=== PATIENT | female | born 2000 | race Two or more races ===

== ENCOUNTER 2023-12-15 13:36 | Inpatient (IN) | payer OTHER ==
[~2023-12-15] VITALS: Ht 162.6 cm; Wt 79.4 kg
[2023-12-15] MEDS ORDERED: BUTORPHANOL TARTRATE 2 MG/1 ML VIAL IV PRN ×2 (15:15)
[2023-12-15 15:30] LABS: Fern Testing Negative
[2023-12-15] MEDS: NALOXONE HCL 0.4 MG/ML VIAL IV ONE (15:30)
[2023-12-15] MEDS: ePHEDrine SULFATE 50 MG/ML AMP IV ONE (15:30)
[2023-12-15 16:12] LABS: Basophils # (auto) 0 10 ^3/uL (0-0.2); Basophils % (auto) 0.2 % (0.0-2.0); Eosinophils # (auto) 0.1 10 ^3/uL (0-0.8); Eosinophils % (auto) 0.7 % (0.0-7.0); Hematocrit 37.5 % (36.0-46.0); Hemoglobin 13.1 g/dL (12.2-16.2); Lymphocytes # (auto) 2.1 10 ^3/uL (0.4-5.4); Lymphocytes % (auto) 21.1 % (10.0-50.0); Mean Corpuscular Hemoglobin 33.2 pg (28.0-32.0); Mean Corpuscular Hgb Conc. 35.1 g/dL (32.0-36.0); Mean Corpuscular Volume 94.6 fL (80.0-100.0); Monocytes # (auto) 0.6 10 ^3/uL (0-1.3); Monocytes % (auto) 5.9 % (0.0-12.0); Neutrophils # (auto) 7.2 10 ^3/uL (1.6-8.6); Neutrophils % (auto) 72.1 % (37.0-80.0); Nucleated Red Blood Cells % 0.1 %; Platelet Count (auto) 212 10^3/uL (140-450); Red Blood Cells 3.96 10^6/uL (4.0-5.20); Red Cell Distribution Width 13.2 % (11.8-14.3)
[2023-12-15 16:16] LABS: Urine Bacteria FEW /hpf (None Seen); Urine Blood TRACE /uL (Negative); Urine Clarity Clear (Clear); Urine Color Light-Yellow (Yellow); Urine Mucus FEW (None Seen); Urine Protein, UAD TRACE (Negative); Urine Specific Gravity 1.023 (1.001-1.035); Urine Urobilinogen Normal (Negative); Urine WBC 1 /hpf (0 - 5); Urine pH 6.5 (5.0-9.0)
[2023-12-15 16:28] LABS: INR 0.91 (0.9-1.15); Partial Thromboplastin Time 27.4 SEC (24.5-34.5); Prothrombin Time 9.7 sec (9.3-11.8)
[2023-12-15 16:41] LABS: Amphetamine Screen, Urine Neg (NEGATIVE); Barbiturate Scree,Urine Neg (NEGATIVE); Benzodiazephine Screen, Urine Neg (NEGATIVE); Cannabinoid Screen, Urine Neg (NEGATIVE); Cocaine Screen, Urine Neg (NEGATIVE); Opiate Scree,Urine Neg (NEGATIVE); Phencyclidine Screen, Urine Neg (NEGATIVE)
[2023-12-15 16:45] LABS: Alanine Aminotransferase 14 U/L (7-40); Alkaline Phosphatase 134 U/L (46-116); Anion Gap 8 (5-15); Aspartate Aminotransferase 17 U/L (13-40); BUN/Creatinine Ratio 13.1 (10.0-20.0); Bilirubin, Total 0.3 mg/dL (0.2-1.0); Blood Urea Nitrogen 8 mg/dL (9-23); Calcium 9.3 mg/dL (8.7-10.4); Carbon Dioxide 21 mmol/L (20-30); Chloride 107 mmol/L (98-107); Glucose 67 mg/dL (74-106); Potassium 3.8 mmol/L (3.5-5.1); Sodium 136 mmol/L (136-145); Total Protein 6.6 g/dL (5.7-8.2)
[2023-12-15] MEDS: ROPIVACAINE HCL 200 ML ONE (16:59)
[2023-12-15] MEDS: LACTATED RINGER'S 1,000 ML IV ONE (17:13)
[2023-12-15] MEDS: LACTATED RINGER'S 1,000 ML IV SCH (17:14)
[2023-12-15] MEDS ORDERED: TERBUTALINE SULFATE 1 MG/ML 1ML VIAL SC PRN (19:45)
[2023-12-15] MEDS: LACT. RINGERS/OXYTOCIN 20UNITS 1,000 ML IV SCH (20:14)
[2023-12-15] MEDS: ACETAMINOPHEN 325 MG TAB PO ONE (21:33)
[2023-12-15 22:52] LABS: Protein, Urine 8.7 mg/dL (0.0-11.9)
[2023-12-15 22:55] LABS: Creatinine, Urine 48.64 mg/dL (30.0-125.0); Urine Protein/Creatinine Ratio 0.18
[2023-12-15] MEDS: CALCIUM CARB 500 MG CHEW TAB PO ONE (23:51)
[2023-12-16] MEDS: SODIUM CHLORIDE 0.9% 300 ML IUPC ONE (00:30)
[2023-12-16] MEDS: SODIUM CHLORIDE 0.9% 1,000 ML IUPC SCH (00:30)
[2023-12-16] MEDS: NALOXONE HCL 0.4 MG/ML VIAL IV ONE (01:00)
[2023-12-16] MEDS ORDERED: fentaNYL CITRATE 100 MCG/2 ML VL ONE (01:10)
[2023-12-16] MEDS: fentaNYL CITRATE 100 MCG/2 ML VL EPI ONE (02:48)
[2023-12-16] MEDS: fentaNYL CITRATE 100 MCG/2 ML VL IV ONE (02:48)
[2023-12-16] MEDS: ONDANSETRON HCL 4 MG/2 ML VIAL IV PRN (04:00)
[2023-12-16] MEDS: ROPIVACAINE HCL 200 ML ONE (04:06)
[2023-12-16] MEDS: LACT. RINGERS/OXYTOCIN 20UNITS 500 ML IV ONE ×2 (08:13→08:14)
[2023-12-16] MEDS: DERMOPLAST 60ML BOTTLE TOP PRN (09:04)
[2023-12-16] MEDS: PHISODERM TOP SOLN 240ML BTL TOP PRN (09:04)
[2023-12-16] MEDS: WITCH HAZEL-GLYCERIN PAD TOP PRN (09:04)
[2023-12-16] MEDS: LIDOCAINE 2%HCL (LOCAL ANESTH.) INJ 20ML MDV IJ PRN (09:04)
[2023-12-16] MEDS ORDERED: CALCIUM CARB 500 MG CHEW TAB PO SCH (10:00)
[2023-12-16 11:00] VITALS: BP 119/77; PULSE 77; RESP 18; TEMP 98.4; O2SAT 98
[2023-12-16] MEDS: IBUPROFEN 600 MG TAB PO PRN (11:35)
[2023-12-16 15:05] VITALS: BP 119/85; PULSE 69; RESP 18; TEMP 98.1; O2SAT 98
[2023-12-16] MEDS: RHO (D) IMMUNE GLOBULIN 300 MCG INJ IM ONE (17:40)
[2023-12-16 19:10] VITALS: BP 120/71; PULSE 80; RESP 16; TEMP 98.2; O2SAT 98
[2023-12-16] MEDS: ACETAMINOPHEN 325 MG TAB PO PRN (20:35)
[2023-12-16 23:00] VITALS: BP 122/72; PULSE 77; RESP 18; TEMP 97.7; O2SAT 97
[2023-12-17] MEDS: DOCUSATE SOD 100 MG CAP PO SCH (01:39)
[2023-12-17] MEDS ORDERED: PREN-96 PO (01:43)
[2023-12-17] MEDS ORDERED: DOCU-265 PO (01:43)
[2023-12-17] MEDS ORDERED: IBU600T PO (01:43)
[2023-12-17 03:00] VITALS: BP 136/81; PULSE 81; RESP 18; TEMP 97.8; O2SAT 100
[2023-12-17 07:06] LABS: RPR Non Reactive (Non Reactive)
[2023-12-17 07:30] VITALS: BP 133/81; PULSE 72; RESP 18; TEMP 97.8; O2SAT 98
[2023-12-17 10:30] VITALS: BP 129/72; PULSE 86; RESP 18; TEMP 97.9; O2SAT 98
[2023-12-17] MEDS ORDERED: DOCUSATE SOD 100 MG CAP PO SCH (22:00)
== END 2023-12-17 11:40 | disposition home or self-care (01) | DRG 807 ==
LOC: LDRP 13:36 → OBSVTOIN 15:05 → LDRP 15:47
PROVIDERS: ADMIT Obstetrics & Gynecology; ATTEND Obstetrics & Gynecology
PROC: 10E0XZZ Delivery of Products of Conception, External Approach (ICD-10-PCS; principal; 2023-12-16)
PROC: 0KQM0ZZ Repair Perineum Muscle, Open Approach (ICD-10-PCS; 2023-12-16)
PROC: 3E0R3BZ Introduction of Anesthetic Agent into Spinal Canal, Percutaneous Approach (ICD-10-PCS; 2023-12-16)
PROC: 00HU33Z Insertion of Infusion Device into Spinal Canal, Percutaneous Approach (ICD-10-PCS; 2023-12-16)
DX: O69.81X0 Labor and delivery complicated by cord around neck, without compression, not applicable or unspecified (principal); Z37.0 Single live birth; O70.1 Second degree perineal laceration during delivery; Z3A.38 38 weeks gestation of pregnancy; Z88.0 Allergy status to penicillin
CPT/HCPCS: 36415; 59025; 59409; 62282; 76805; 80053; 80307; 81001; 81002; 82570; 84156; 85025; 85610; 85730; 86592; 86703; 86803; 86850; 86870; 86900; 86901; 87340; 90384; 94760; 96360; 96361; 96365; 96366; 96372; 96374; G0378; J2405; J2590